=== PATIENT | female | born 1930 | race Caucasian/White ===

== ENCOUNTER → 2017-07-05 | Outpatient (CLI) | payer MEDICARE, BC ==
[~2017-07-05] MED LIST: CALTRATE 600+D PO; COUMADIN5 MG PO; FUROSEMIDE40 MG PO; IMDUR-ER30 M1 PO; POTASSIUM CHLO10 ME2 PO; SYNTHROID75 MCG PO; TOPROL XL PO; TYLENOL WITH C1 EACH PO; VOLTAREN75 MG PO; ZOCOR PO
--- NOTE | ~2017-07-05 | CO ---
Unit #: [id number] #: [id number] Patient: MAYRA NOBLE [id number] [address] [place], [place] [address] [id number] O MR#: [id number] NAME: MAYRA NOBLE ROOM: Age: 86 Sex: F Admission Date: 07/05/2017 : 1930 Attending Physician: Reno Suarez M.D. Primary Care Physician: No Primary Care Physician Consultation Date: 07/05/2017 CONSULTATION REPORT REASON FOR CONSULTATION Preprocedure medical evaluation prior to removal of right total hip secondary to right hip infection scheduled by Dr. Suarez for 07/17/17. HISTORY OF PRESENT ILLNESS The patient is an 86-year-old female who presents to preprocedural screening for the reason as indicated above. She has no complaints at the time of this interview today. Patient is very hard of hearing but has both hearing aids in and is accompanied by her gfvfusqr-bl-kem, Haily, today. Patient denies upper chest, upper back, bilateral neck, jaw pain or pressure. Denies shortness of air, dyspnea on exertion, PND or orthopnea. Denies lightheadedness, dizziness and palpitations. She has been evaluated by Dr. Suarez and scheduled for the above referenced procedure. PAST MEDICAL HISTORY 1. Osteoarthritis. 2. History of postoperative DVT. 3. Coronary artery disease. 4. Hyperlipidemia. 5. Hypothyroidism. 6. GERD. 7. Peripheral arterial disease status post right femoral bypass graft. 8. History of congestive heart failure without further details. 9. Allergic rhinitis. 10. 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 11. Peripheral neuropathy of the feet. 12. Questionable chronic kidney disease. PAST SURGICAL HISTORY 1. Left total hip arthroplasty. 2. Left total knee arthroplasty. 3. Hysterectomy. 4. Right total hip arthroplasty. 5. Right total hip repair. 6. Bowel resection for bowel obstruction. 7. Right femoral bypass graft. 8. Partial thyroidectomy. NOTE: Patient denies a personal and family history of complications to anesthesia. ALLERGIES Denies latex allergy and denies medication allergies. Unit #: [id number] #: [id number] Patient: MAYRA NOBLE CURRENT MEDICATIONS 1. Coumadin 5 mg p.o. daily. 2. Potassium chloride 10 mEq p.o. daily. 3. Furosemide 40 mg p.o. daily. 4. Zocor 40 mg p.o. at bedtime. 5. Toprol XL 50 mg p.o. b.i.d. SOCIAL HISTORY Denies tobacco use, ETOH use and illicit drug use. FAMILY HISTORY Per review of Dr. Suarez's office note, unknown. REVIEW OF SYSTEMS Dried scabbed wound right lower extremity without fever, chills. A 10-point review of systems is conducted and otherwise negative except as indicated under history of present illness above. PHYSICAL EXAMINATION GENERAL: Lrwhqu-ukot-tuzj-old female, awake, alert, in no acute distress. VITAL SIGNS: Temperature 97.4, heart rate 89, respiratory rate 20, blood pressure 119/67, oxygen saturation 98% on room air. HEENT: Atraumatic, normocephalic. Sclerae anicteric. No discharge from eyes, ears or nares. Bilateral hearing aids in place. LYMPH: No preauricular, postauricular, tonsillar, submental, anterior, posterior cervical, supra- or infraclavicular adenopathy. ENDOCRINE: No thyromegaly, thyroid nodules or tenderness. RESPIRATORY: Clear to auscultation all olivas bilaterally without wheezes, rhonchi or rales. CARDIOVASCULAR: S1, S2. Regular rate and rhythm without murmur or rub. GI: Bowel sounds positive x4. Soft, nontender, nondistended. EXTREMITIES: Right lower extremity 2 to 3+ pitting edema. Left lower extremity with 2+ edema. DERM: Right lower extremity 0.5 cm scabbed wound without erythema, edema, induration or streaking. Skin dry and flaky especially on lower extremities. NEUROLOGIC: Alert and oriented x3. Speech clear. Follows instructions during examination. DIAGNOSTIC STUDIES LABORATORY: WBC 6.1, hemoglobin 11.3, hematocrit 34.0, platelets 286,000, sed rate 70. CRP 1.4. Sodium 136, potassium 4.2, chloride 98, CO2 27, glucose 98, BUN 45, creatinine 1.6, eGFR 29.3, consistent with severely decreased kidney function. Calcium 8.7, AST 16, ALT 12, alkaline phosphatase 72, bili total 0.6, total protein 7.9, albumin 3.7. PT 18.8, INR 1.7. UA negative with neither culture nor microscopic indicated. Blood type A+. Antibody screen negative. MRSA nasal swab report pending at this time. CARDIOLOGY: Twelve-lead EKG - Prior tracing from 10/07/15: Atrial fibrillation, borderline left axis deviation. Updated twelve-lead EKG from [facility], date of service 06/27/17, to be sent for review as pre-op twelve-lead EKG from the patient's well services operator, Dr. Jung, at [facility]. IMAGING: Bilateral lower extremity duplex venous Doppler pending at this Unit #: [id number] #: [id number] Patient: MAYRA NOBLE. IMPRESSION: 1. The patient is an 86-year-old female who presents to preprocedural screening for preoperative medical evaluation prior to removal of right total hip secondary to right hip infection. The patient's Curtis Revised Cardiac Risk Index is approximately equal to 1.0% to 3.6% given the patient's history of congestive heart failure and possible chronic kidney disease. Patient's creatinine today is elevated at 1.6. We have received records from [facility], as well as [facility]. Per review of these reports, the patient's creatinine has been running from 1.1 to approximately 1.8 since 2014. The patient and the patient's horgwhho-ci-xbq deny known history of chronic kidney disease. Patient is established with [facility] as primary care provider. She has never been seen by a director speech language. I have requested that the patient be given a pre-op clearance from [facility] given the patient's history of elevated creatinine and mild anemia that is likely secondary to chronic kidney disease. I have also requested preop cardiac clearance from Dr. Jung given the patient's history of coronary artery disease, congestive heart failure, chronic A fib and mitral valve insufficiency. Both the patient and the patient's duxqscqt-po-okh have verbalized understanding of this information. 2. History of DVT. Duplex venous Doppler studies are pending at this time. 3. Coronary artery disease. History of A fib, which is chronic, on chronic Coumadin therapy. Patient has a controlled ventricular rate at the time of clinical examination today. Perioperative anticoagulation management will be per order of Dr. Suarez. 4. Hyperlipidemia. 5. Hypothyroidism status post partial thyroidectomy. A TSH and free T4 are pending off blood in lab today. Will continue home dose pending that result. 6. GERD. 7. History of right femoral bypass graft. According to the patient's clmwbvjy-za-kft, she just saw Dr. Terrazas who has recommended no followup on the bypass graft for at least one year. 8. Peripheral arterial disease. 9. History of congestive heart failure without additional infection information. Again, pre-op cardiac clearance is pending. 10. Allergic rhinitis. 11. Hardness of hearing with bilateral hearing aid use. Patient responds best with direct eye contact and low, slow speech. 12. Osteoarthritis. 13. Peripheral neuropathy of both feet. 14. Mild chronic microcytic hypochromic anemia. This is likely secondary to chronic kidney disease. 15. Chronic kidney disease, stage 3 to 4. Will follow the patient's creatinine postoperatively. Management of the patient's furosemide will be per the well services operator. The patient has been advised to discontinue diclofenac, as it is an NSAID. Will consult Nephrology postoperatively if indicated. Thank you for allowing us to participate in the care of this patient. We will gladly follow the patient for postop medical management pending preoperative cardiac clearance, preoperative primary care clearance for chronic kidney disease and anemia and order of Dr. Suarez. Unit #: [id number] #: [id number] Patient: MAYRA NOBLE Dictated by... Bernadette Rodriguez A.P.R.N. for Aman Hart/claudia TD: 07/06/2017 10:06 JOB #: [id number] CONSULTATION REPORT Page 1 of 1 X Bernadette Rodriguez APRN X CONSULTATION REPORT
--- NOTE | ~2017-07-05 | US84 ---
[id number] [facility] [address] [facility]. [place], [place] [address] [id number] O MR#: [id number] Acc #: [id number] NAME: MAYRA NOBLE : 1930 SEX: F STUDY DATE/TIME: 07/05/2017 14:57 UNIT: [facility] ROOM: STUDY DESCRIPTION: US LE Veins Complete Frank Stdy Attending Physician: Reno Suarez M.D. Referring Physician: Reno Suarez M.D. Ordering Physician: Reno Suarez M.D. Primary Care Physician: No Primary Care Physician MEDICAL IMAGING REPORT This report is preliminary unless electronic signature is present EXAM Bilateral lower extremity venous duplex, 07/05/2017. HISTORY Bilateral lower extremity edema for 2 weeks. History of previous lower extremity deep vein thrombosis. TECHNIQUE Venous ultrasound examination of both lower extremities was performed using grayscale, spectral Doppler and color flow Doppler imaging. FINDINGS The examination is negative. There is no evidence of deep venous thrombus from the groin to the lower calf bilaterally. Visualized greater saphenous veins are also patent. IMPRESSION Negative examination. No evidence of lower extremity deep venous thrombosis. Dictated by... Josue Max M.D. THIS IS AN ELECTRONICALLY VERIFIED REPORT Josue Max M.D. at 07/06/2017 7:49 AM [facility] TD: 07/05/2017 16:14 JOB #: [id number] MEDICAL IMAGING REPORT Page 1 of 1 COPY
--- NOTE | ~2017-07-05 | CR63 ---
[facility] A Service of [facility] RADIOLOGY TEXT RESULTS PATIENT: MAYRA NOBLE LOCATION: [facility] SAULT : [birth year] UNIT #: [id number] AGE: [address]: Reno Suarez MD SEX: F ORDER DR: [id number] [facility] [address] [facility]. [place], [place] [address] [id number] O MR#: [id number] Acc #: [id number] NAME: MAYRA NOBLE : 1930 SEX: F STUDY DATE/TIME: 07/05/2017 14:30 UNIT: [facility] ROOM: STUDY DESCRIPTION: CR Chest 2 View Attending Physician: Reno Suarez M.D. Referring Physician: Reno Suarez M.D. Ordering Physician: Reno Suarez M.D. Primary Care Physician: No Primary Care Physician MEDICAL IMAGING REPORT This report is preliminary unless electronic signature is present EXAM PA and lateral chest. DATE 07/05/2017 HISTORY 86-year-old female undergoing preoperative evaluation. Shortness breath today. History of congestive heart failure. COMPARISON None FINDINGS Low volume inspiration. Linear scarring or linear subsegmental atelectasis in the right base. There is mild central bronchiectasis with bronchial wall thickening in both lungs. No pleural effusion or consolidation. Heart size within normal limits. Degenerative change of the left shoulder. IMPRESSION 1. Bronchial wall thickening with mild bronchiectasis centrally. Correlate clinically for acute or chronic bronchitis. 2. Minimal linear scarring or atelectasis in the right base. No consolidation. Dictated by... Sammie Cheney M.D. THIS IS AN ELECTRONICALLY VERIFIED REPORT Sammie Cheney M.D. at 07/06/2017 12:28 PM [facility] A Service [facility] RADIOLOGY TEXT RESULTS PATIENT: MAYRA NOBLE LOCATION: [facility] SAULT : [birth year] UNIT #: [id number] AGE: [address]: Reno Suarez MD SEX: F ORDER DR: LESTER/quinten TD: 07/05/2017 21:44 JOB #: [id number] MEDICAL IMAGING REPORT Page 1 of 1 COPY
[2017-07-05 12:22] LABS: HEMOGLOBIN 11.3 gm/dL (12.0-16.0); MEAN CELL VOLUME 82.5 FL (83-96); MEAN CORPUSCULAR HEMOGLOBIN 27.5 PG (28-34); MEAN CORPUSCULAR HGB CONC 33.3 g/dL (30-36); MEAN PLATELET VOLUME 7.6 FL (6.5-11.5); RED BLOOD COUNT 4.12 X10e (3.90-5.30); WHITE BLOOD COUNT 6.1 X10e3 (4.0-10.5)
[2017-07-05 12:27] LABS: URINE APPEARANCE CLEAR; URINE BILIRUBIN NEG (NEG); URINE BLOOD NEG (NEG); URINE COLOR YELLOW; URINE GLUCOSE NEG (NEG); URINE KETONE NEG (NEG); URINE LEUKOCYTE ESTERASE NEG (NEG); URINE NITRATE NEG (NEG); URINE PROTEIN NEG (NEG); URINE SPECIFIC GRAVITY 1.009 (1.003-1.035); URINE UROBILINOGEN 0.2 MG/DL (NEG)
[2017-07-05 12:29] LABS: CULTURE INDICATED? NO
[2017-07-05 12:34] LABS: INR 1.7; PROTHROMBIN TIME (PATIENT) 18.8 SECONDS (10.0-11.7)
[2017-07-05 12:52] LABS: ALBUMIN SERUM 3.7 g/dL (3.5-5.0); BILIRUBIN,TOTAL 0.6 mg/dL (0.2-2.0); BUN/CREATININE RATIO 28.12; CALCIUM SERUM 8.7 mg/dL (8.4-10.2); CREATININE SERUM 1.6 mg/dL (0.6-1.4); GLOM FILT RATE Estimated 29.3 mL/min (>60); POTASSIUM 4.2 mmol/L (3.5-5.1); PROTEIN TOTAL SERUM 7.9 g/dL (6.0-8.3)
[2017-07-05 15:24] LABS: THYROID STIMULATING HORMONE 5.63 uIU/ml (0.34-5.60)
[2017-07-05 15:31] LABS: FREE THYROXIN (T4) 1.24 ng/dL (0.58-1.64)
== END | disposition home or self-care (01) ==
LOC: CAMB 11:35
PROVIDERS: Orthopaedic Surgery
DX: Z01.818 Encounter for other preprocedural examination (principal); J47.9 Bronchiectasis, uncomplicated; T84.51XA Infection and inflammatory reaction due to internal right hip prosthesis, initial encounter; K21.9 Gastro-esophageal reflux disease without esophagitis; I51.9 Heart disease, unspecified; E03.9 Hypothyroidism, unspecified; Z79.01 Long term (current) use of anticoagulants; Z86.718 Personal history of other venous thrombosis and embolism
CPT/HCPCS: 36415; 71020; 80053; 81003; 84439; 84443; 85027; 85610; 85652; 86140; 86850; 86900; 86901; 87070; 93970